=== PATIENT | female | born 1950 | race Asian ===

== ENCOUNTER 2018-02-11 05:51 | Day surgery (SDC) | payer BC ==
[2018-02-04 13:38] LABS: ADD MAN DIFF? NO
[2018-02-04 13:42] LABS: WHITE BLOOD COUNT 6.2 10^3/ul (4.8-10.8)
[2018-02-04 13:42] LABS: BASOPHIL # 0.1 10^3/ul (0.0-0.1); BASOPHILS % 0.8 % (0.0-2.0); EOSINOPHILS # 0.1 10^3/ul (0.0-0.5); HEMATOCRIT 35.8 % (37.0-47.0); HEMOGLOBIN 11.6 g/dl (12.0-16.0); LYMPHOCYTES % 16.2 % (15.0-51.0); MEAN CORPUSCULAR HEMOGLOBIN 31.4 pg (29.0-33.0); MEAN CORPUSCULAR HGB CONC 32.4 g/dl (32.0-37.0); MEAN PLATELET VOLUME 9.3 fl (7.4-10.4); MONOCYTE # 0.9 10^3/ul (0.3-0.9); MONOCYTES % 13.8 % (0.0-11.0); NEUTROPHIL # 4.2 10^3/ul (1.6-7.5); NEUTROPHILS % 67.9 % (39.0-77.0); PLATELET COUNT 300 10^3/UL (140-415); RED BLOOD COUNT 3.69 10^6/ul (4.20-5.40); RED CELL DISTRIBUTION WIDTH 20.6 % (11.5-14.5)
[2018-02-04 13:56] LABS: INR 0.82; PROTIME 11.3 Sec (11.9-14.9); PT RATIO 0.9
[2018-02-04 14:35] LABS: ANION GAP 23 (8-16); CARBON DIOXIDE 26 mmol/L (21-31); CHLORIDE 92 mmol/L (97-110); GLUCOSE 126 mg/dl (70-220)
[2018-02-04 14:41] LABS: CALCIUM 9.5 mg/dl (8.4-10.2); CREATININE 7.27 mg/dl (0.44-1.00); SODIUM 136 mmol/L (135-144)
[2018-02-04 14:46] LABS: ADD UMIC YES; UR ASCORBIC ACID NEGATIVE (NEGATIVE); UR BACTERIA FEW /HPF (NONE SEEN); UR BILIRUBIN (Dip) NEGATIVE (NEGATIVE); UR BLOOD (Dip) NEGATIVE (NEGATIVE); UR CLARITY CLEAR (CLEAR); UR COLOR YELLOW (YELLOW); UR GLUCOSE (Dip) 2+ mg/dL (NEGATIVE); UR KETONES (Dip) NEGATIVE (NEGATIVE); UR LEUKOCYTE ESTERASE (Dip) 3+ Leu/ul (NEGATIVE); UR NITRITE (Dip) NEGATIVE (NEGATIVE); UR RBC 7 /HPF (0-5); UR SPECIFIC GRAVITY (Dip) 1.008 (1.003-1.030); UR TOTAL PROTEIN (Dip) 3+ mg/dl (NEGATIVE); UR UROBILINOGEN (Dip) NEGATIVE (NEGATIVE); UR WBC 85 /HPF (0-5)
[2018-02-04 14:58] LABS: BLOOD UREA NITROGEN 87 mg/dl (7-20)
[2018-02-04 14:59] LABS: POTASSIUM 5.3 mmol/L (3.5-5.1)
[2018-02-11] MEDS ORDERED: CEFAZOLIN 2 GM/50 ML (PMX) 50 ML IVPB (06:30)
[2018-02-11] MEDS ORDERED: MIDAZOLAM 1 MG/ML 2 ML INJ (06:52)
[2018-02-11] MEDS ORDERED: CEFAZOLIN 1 GM INJ (06:52)
[2018-02-11] MEDS ORDERED: PROPOFOL 20 ML (06:53)
[2018-02-11] MEDS ORDERED: LIDOCAINE 2% (SDV) 5 ML INJ ×2 (06:53→07:43)
[2018-02-11] MEDS ORDERED: ONDANSETRON 4 MG INJ (06:59)
[2018-02-11] MEDS ORDERED: GELATIN SIZE 100 SPONGE (07:01)
[2018-02-11] MEDS ORDERED: LIDOCAINE 1% (MPF) 30 ML INJ (07:01)
[2018-02-11] MEDS ORDERED: THROMBIN 5000 UNIT VIAL (07:02)
[2018-02-11] MEDS ORDERED: HEPARIN 1000 UNITS/ML 10 ML INJ ×2 (07:02→08:33)
[2018-02-11 07:04] LABS: POTASSIUM 5.5 mmol/L (3.5-5.1)
[2018-02-11] MEDS: THROMBIN 5000 UNIT VIAL TOP (07:15)
[2018-02-11] MEDS: HEPARIN 1000 UNITS/ML 10 ML INJ IRR (07:15)
[2018-02-11] MEDS: GELATIN SIZE 100 SPONGE TOP (07:15)
[2018-02-11] MEDS: LIDOCAINE 1% (MPF) 30 ML INJ INJ (07:15)
[2018-02-11] MEDS ORDERED: FENTAnyl 50 MCG/ML VIAL IV (07:30)
[2018-02-11] MEDS ORDERED: ONDANSETRON 4 MG INJ IV (07:30)
[2018-02-11] MEDS ORDERED: BUPIVACAINE 0.5% (SDV) 30 ML INJ (07:46)
== END 2018-02-11 10:56 | disposition home or self-care (01) ==
LOC: SDS 05:51
DX: I77.0 Arteriovenous fistula, acquired (principal); N18.6 End stage renal disease; I12.0 Hypertensive chronic kidney disease with stage 5 chronic kidney disease or end stage renal disease
CPT/HCPCS: 36821; 80048; 81001; 84132; 85025; 85610; 85730

== ENCOUNTER 2018-04-21 08:40 | Day surgery (SDC) | payer BC ==
[2018-04-21] MEDS: AMLODIPINE 10 MG TAB PO (09:36)
[2018-04-21 09:48] LABS: POTASSIUM 5.8 mmol/L (3.5-5.1)
[2018-04-21] MEDS ORDERED: IODIXANOL LOCM 100 ML BTL ×2 (10:38→11:59)
[2018-04-21] MEDS ORDERED: LIDOCAINE 1% (MDV) 20 ML INJ (10:38)
[2018-04-21] MEDS ORDERED: HEPARIN 1000 UNITS/NS (A-LINE) 1,000 ML (10:38)
[2018-04-21] MEDS ORDERED: MIDAZOLAM 1 MG/ML 2 ML INJ (10:39)
[2018-04-21] MEDS ORDERED: FENTAnyl 50 MCG/ML VIAL (10:39)
[2018-04-21] MEDS ORDERED: HEPARIN 1000 UNITS/ML 10 ML INJ (12:00)
[2018-04-21] MEDS ORDERED: ACETAMINOPHEN 325 MG TAB PO (13:00)
== END 2018-04-21 13:07 | disposition home or self-care (01) ==
LOC: SDS 08:40
DX: I12.0 Hypertensive chronic kidney disease with stage 5 chronic kidney disease or end stage renal disease (principal); N18.6 End stage renal disease
CPT/HCPCS: 36902; 36909; 76937; 84132

== ENCOUNTER → 2018-05-22 | Outpatient (CLI) | payer BC | END | disposition home or self-care (01) | LOC: RAD 08:24 | DX: J18.9 Pneumonia, unspecified organism (principal) | CPT/HCPCS: 71046 ==

== ENCOUNTER 2018-07-15 06:11 | Day surgery (SDC) | payer BC ==
[2018-07-15] MEDS ORDERED: SOD CHLORIDE 0.9% 500 ML IV (07:00)
[2018-07-15] MEDS ORDERED: LIDOCAINE 1% (MDV) 20 ML INJ ×2 (07:17→08:07)
[2018-07-15] MEDS ORDERED: HEPARIN 1000 UNITS/NS (A-LINE) 1,000 ML (07:17)
[2018-07-15] MEDS ORDERED: IODIXANOL LOCM 100 ML BTL (07:17)
[2018-07-15] MEDS ORDERED: FENTAnyl 50 MCG/ML VIAL (07:27)
[2018-07-15] MEDS ORDERED: MIDAZOLAM 1 MG/ML 2 ML INJ (07:27)
[2018-07-15 07:30] LABS: ADD MAN DIFF? NO
[2018-07-15 07:38] LABS: WHITE BLOOD COUNT 2.9 10^3/ul (4.8-10.8)
[2018-07-15 07:38] LABS: BASOPHILS % 1.1 % (0.0-2.0); EOSINOPHILS # 0.1 10^3/ul (0.0-0.5); EOSINOPHILS % 3.5 % (0.0-7.0); HEMATOCRIT 45.3 % (37.0-47.0); HEMOGLOBIN 14.3 g/dl (12.0-16.0); LYMPHOCYTES # 0.7 10^3/ul (0.8-2.9); LYMPHOCYTES % 24.2 % (15.0-51.0); MEAN CORPUSCULAR HEMOGLOBIN 33.5 pg (29.0-33.0); MEAN CORPUSCULAR HGB CONC 31.6 g/dl (32.0-37.0); MEAN CORPUSCULAR VOLUME 106.1 fl (82.0-101.0); MEAN PLATELET VOLUME 9.3 fl (7.4-10.4); MONOCYTE # 0.4 10^3/ul (0.3-0.9); MONOCYTES % 15.1 % (0.0-11.0); NEUTROPHIL # 1.6 10^3/ul (1.6-7.5); NEUTROPHILS % 55.7 % (39.0-77.0); PLATELET COUNT 247 10^3/UL (140-415); RED BLOOD COUNT 4.27 10^6/ul (4.20-5.40); RED CELL DISTRIBUTION WIDTH 15.5 % (11.5-14.5)
[2018-07-15 07:53] LABS: ALANINE AMINOTRANSFERASE 24 IU/L (13-69); ALBUMIN 4.7 g/dl (3.3-4.9); ALKALINE PHOSPHATASE 144 IU/L (42-121); ANION GAP 22 (8-16); ASPARTATE AMINO TRANSFERASE 31 IU/L (15-46); BILIRUBIN,INDIRECT 0.1 mg/dl (0-1.1); BILIRUBIN,TOTAL 0.1 mg/dl (0.2-1.3); BLOOD UREA NITROGEN 87 mg/dl (7-20); CALCIUM 9.5 mg/dl (8.4-10.2); CARBON DIOXIDE 28 mmol/L (21-31); CHLORIDE 93 mmol/L (97-110); CREATININE 7.88 mg/dl (0.44-1.00); GLUCOSE 82 mg/dl (70-220); INR 0.85; POTASSIUM 3.7 mmol/L (3.5-5.1); PROTIME 11.7 Sec (11.9-14.9); PT RATIO 0.9; SODIUM 139 mmol/L (135-144); TOTAL PROTEIN 8.6 g/dl (6.1-8.1)
== END 2018-07-15 09:00 | disposition home or self-care (01) ==
LOC: SDS 06:11
DX: I12.0 Hypertensive chronic kidney disease with stage 5 chronic kidney disease or end stage renal disease (principal); N18.6 End stage renal disease; E78.00 Pure hypercholesterolemia, unspecified
CPT/HCPCS: 36010; 37248; 37249; 80053; 85025; 85610; 85730